=== PATIENT | male | born 1985 | race Caucasian/White ===

== ENCOUNTER → 2019-07-23 08:55 | Outpatient (BNVA) | payer MEDICARE, SELFPAY | PROVIDERS: Family Provider Social Worker; PCP Family Medicine; Visit Provider Family Medicine | DX: I10 Essential (primary) hypertension (principal); J44.9 Chronic obstructive pulmonary disease, unspecified; M54.5 Low back pain; G89.4 Chronic pain syndrome; K21.9 Gastro-esophageal reflux disease without esophagitis; G47.00 Insomnia, unspecified; F90.9 Attention-deficit hyperactivity disorder, unspecified type; F33.1 Major depressive disorder, recurrent, moderate; F41.1 Generalized anxiety disorder; F90.8 Attention-deficit hyperactivity disorder, other type; F51.04 Psychophysiologic insomnia | CPT/HCPCS: 80053; 80061; 85025 ==

== ENCOUNTER → 2020-01-02 13:27 | Outpatient (BNVA) | payer MEDICARE, SELFPAY | PROVIDERS: Family Provider Social Worker; PCP Family Medicine; Visit Provider Psychiatry & Neurology Psychiatry | DX: F15.21 Other stimulant dependence, in remission (principal); F12.20 Cannabis dependence, uncomplicated; F17.200 Nicotine dependence, unspecified, uncomplicated; F11.21 Opioid dependence, in remission; F41.1 Generalized anxiety disorder; F33.1 Major depressive disorder, recurrent, moderate | CPT/HCPCS: 99204 ==